=== PATIENT | male | born 2005 | race Caucasian/White ===

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

== ENCOUNTER 2024-10-31 16:08 | Emergency (ER) | payer BC, SELFPAY ==
[~2024-10-31] VITALS: Ht 167.6 cm; Wt 68.9 kg
[2024-10-31 16:15] VITALS: BP 134/75; TEMP 97.2; O2SAT 99
== END 2024-10-31 16:41 | disposition left against medical advice (07) ==
LOC: M ED 16:08
DX: Z53.21 Procedure and treatment not carried out due to patient leaving prior to being seen by health care provider (principal)